=== PATIENT | female | born 1985 | race Hispanic/Latino ===

== ENCOUNTER 2019-10-07 | Emergency (ER) | payer SELFPAY ==
[~2019-10-07] MED LIST: BENADRYL 50MG C50 MG PO; MEDDOSEPAK PO; PEPCID20 MG PO; PHENERGAN25 MG/TAB PO
[2019-10-07 14:07] LABS: HEMATOCRIT 37.6 % (37.0-47.0); HEMOGLOBIN 12.2 g/dl (12.0-16.0); IMMATURE GRANULOCYTES 0.4 % (0.0-5.0); MEAN CELL VOLUME 87.2 fL CALC (80.0-100.0); MEAN CORPUSCULAR HGB 28.3 pG CALC (26.0-32.0); MEAN CORPUSCULAR HGB CONC 32.4 g/dL CAL (32.0-36.0); NEUT# 12.78 thou/uL (2.00-7.15); RED BLOOD COUNT 4.31 mill/uL (4.20-5.60); RED CELL DISTRI WIDTH 13.4 % (11.5-15.5)
[2019-10-07 14:09] LABS: URINE BILIRUBIN - DIPSTICK NEGATIVE (NEGATIVE); URINE BLOOD DIPSTICK TRACE-INTACT (NEGATIVE); URINE COLOR YELLOW; URINE GLUCOSE - DIPSTICK 250 mg/dL (NEGATIVE); URINE KETONE TRACE mg/dL (NEGATIVE); URINE LEUK ESTERASE NEGATIVE (NEGATIVE); URINE NITRITE - DIPSTICK NEGATIVE (Negative); URINE PROTEIN - DIPSTICK NEGATIVE (NEG-TRACE); URINE SPECIFIC GRAVITY >=1.030; URINE UROBILINOGEN - DIPSTICK 0.2 E.U./dL (0.2)
[2019-10-07 14:25] LABS: ALBUMIN 4.5 g/dL (3.2-5.0); ALKALINE PHOSPHATASE 68 u/l (38-126); ANION GAP 16 (6-22 (CALC)); BILIRUBIN, TOTAL 0.6 mg/dL (0.0-1.4); BUN 13 mg/dL (7-17); BUN/CREATININE RATIO 28 (12-20 (CALC)); CARBON DIOXIDE 21 mmol/l (22-30); CHLORIDE 104 mmol/l (95-108); CREATININE 0.5 mg/dL (0.5-1.0); GFR > 60 ML/MIN (>=60 (CALC)); GFR FOR AFR.AMER. > 60 ML/MIN (>=60 (CALC)); POTASSIUM 4.3 mmol/l (3.5-5.1); SGOT/AST 24 u/l (14-36); SODIUM 137 mmol/l (137-146); TOTAL PROTEIN 7.9 g/dL (6.3-8.2)
== END 2019-10-07 15:15 | disposition home or self-care (01) | DRG 93 ==
PROVIDERS: Family Medicine
DX: R20.2 Paresthesia of skin (principal); R00.1 Bradycardia, unspecified

== ENCOUNTER 2019-10-27 | Emergency (ER) | payer OTHER ==
[2019-10-27] MEDS ORDERED: IBUPROFEN600 MG PO (12:58)
== END 2019-10-27 13:25 | disposition home or self-care (01) | DRG 552 ==
DX: S16.1XXA Strain of muscle, fascia and tendon at neck level, initial encounter (principal); S90.512A Abrasion, left ankle, initial encounter; S60.221A Contusion of right hand, initial encounter; V43.52XA Car driver injured in collision with other type car in traffic accident, initial encounter

== ENCOUNTER 2019-10-29 | Emergency (ER) | payer SELFPAY ==
[~2019-10-29] MED LIST changes: +IBUPROFEN600 MG PO
[2019-10-29 23:26] LABS: HEMATOCRIT 37.6 % (37.0-47.0); HEMOGLOBIN 12.3 g/dl (12.0-16.0); IMMATURE GRANULOCYTES 0.4 % (0.0-5.0); MEAN CELL VOLUME 86.2 fL CALC (80.0-100.0); MEAN CORPUSCULAR HGB 28.2 pG CALC (26.0-32.0); MEAN CORPUSCULAR HGB CONC 32.7 g/dL CAL (32.0-36.0); NEUT# 7.66 thou/uL (2.00-7.15); RED BLOOD COUNT 4.36 mill/uL (4.20-5.60); RED CELL DISTRI WIDTH 13.1 % (11.5-15.5)
[2019-10-29 23:30] LABS: URINE BILIRUBIN - DIPSTICK NEGATIVE (NEGATIVE); URINE BLOOD DIPSTICK LARGE (NEGATIVE); URINE COLOR YELLOW; URINE GLUCOSE - DIPSTICK NEGATIVE (NEGATIVE); URINE KETONE NEGATIVE (NEGATIVE); URINE NITRITE - DIPSTICK NEGATIVE (Negative); URINE PROTEIN - DIPSTICK TRACE mg/dL (NEG-TRACE)
[2019-10-29 23:37] LABS: URINE LEUK ESTERASE NEGATIVE (NEGATIVE)
[2019-10-29 23:38] LABS: URINE RBC >100 RBC/hpf (0-5)
[2019-10-29 23:39] LABS: URINE BACTERIA MODERATE hpf; URINE EPITHELIAL CELLS MODERATE EPI/hpf (0-FEW)
[2019-10-29 23:55] LABS: ALBUMIN 4.4 g/dL (3.2-5.0); ALKALINE PHOSPHATASE 74 u/l (38-126); ANION GAP 13 (6-22 (CALC)); BILIRUBIN, TOTAL 0.6 mg/dL (0.0-1.4); BUN 11 mg/dL (7-17); BUN/CREATININE RATIO 16 (12-20 (CALC)); CARBON DIOXIDE 25 mmol/l (22-30); CHLORIDE 103 mmol/l (95-108); CREATININE 0.7 mg/dL (0.5-1.0); GFR > 60 ML/MIN (>=60 (CALC)); GFR FOR AFR.AMER. > 60 ML/MIN (>=60 (CALC)); LIPASE 40 u/l (23-300); POTASSIUM 3.5 mmol/l (3.5-5.1); SGOT/AST 17 u/l (14-36); SODIUM 138 mmol/l (137-146)
[2019-10-30] MEDS ORDERED: PERCOCET 5/325M1 TAB PO (02:23)
== END 2019-10-30 02:36 | disposition home or self-care (01) | DRG 392 ==
PROVIDERS: Emergency Medicine
DX: R10.30 Lower abdominal pain, unspecified (principal)
CPT/HCPCS: Q9967

== ENCOUNTER 2022-10-29 13:13 | Emergency (ER) | payer SELFPAY ==
[~2022-10-29] VITALS: Ht 154.9 cm; Wt 68.0 kg
[~2022-10-29 13:13] MED LIST changes: +PERCOCET 5/325M1 TAB PO
[2022-10-29 14:15] LABS: URINE BLOOD DIPSTICK SMALL (NEGATIVE); URINE COLOR YELLOW; URINE GLUCOSE - DIPSTICK NEGATIVE (NEGATIVE); URINE KETONE NEGATIVE (NEGATIVE); URINE LEUK ESTERASE NEGATIVE (NEGATIVE); URINE PH 6.5 (4.5-8.0); URINE PROTEIN - DIPSTICK TRACE mg/dL (NEG-TRACE); URINE UROBILINOGEN - DIPSTICK >=8.0 E.U./dL (0.2)
[2022-10-29 14:19] LABS: BASO% 0.2 % (0-3); EOS% 0.9 % (0-8); IMMATURE GRANULOCYTES 0.3 % (0.0-5.0); LYMPH% 7.7 % (15-41); MEAN CORPUSCULAR HGB 28.4 pG CALC (26.0-32.0); MEAN CORPUSCULAR HGB CONC 29.9 g/dL CAL (32.0-36.0); NEUT# 12.28 thou/uL (2.00-7.15); NEUT% 85.9 % (42-76); RED BLOOD COUNT 2.57 mill/uL (4.20-5.60); RED CELL DISTRI WIDTH 14.6 % (11.5-15.5)
[2022-10-29 14:22] LABS: URINE BILIRUBIN - DIPSTICK SEE COMMNET (NEGATIVE); URINE NITRITE - DIPSTICK NEGATIVE (Negative)
[2022-10-29 14:25] LABS: URINE BACTERIA FEW hpf; URINE RBC 0-2 RBC/hpf (0-5); URINE WBC 0-2 WBC/hpf (0-5)
[2022-10-29 14:27] LABS: ALBUMIN 3.7 g/dL (3.2-5.0); ANION GAP 13 (6-22 (CALC)); BILIRUBIN, TOTAL 0.7 mg/dL (0.02-1.3); BUN 8 mg/dL (7-17); BUN/CREATININE RATIO 16 (12-20 (CALC)); CARBON DIOXIDE 25 mmol/l (22-30); CHLORIDE 98 mmol/l (95-108); CREATININE 0.5 mg/dL (0.5-1.0); GFR FOR AFR.AMER. > 60 ML/MIN (>=60 (CALC)); GFR OTHER RACES > 60 ML/MIN (>=60 (CALC)); LIPASE 23 u/l (23-300); POTASSIUM 4.2 mmol/l (3.5-5.1); SODIUM 133 mmol/l (137-146); TOTAL PROTEIN 6.5 g/dL (6.3-8.2)
[2022-10-29 14:33] LABS: HEMATOCRIT 24.4 % (37.0-47.0); HEMOGLOBIN 7.3 g/dl (12.0-16.0); MEAN CELL VOLUME 94.9 fL CALC (80.0-100.0)
[2022-10-29 14:37] VITALS: BP 124/76
[2022-10-29 14:37] LABS: ALKALINE PHOSPHATASE 161 u/l (38-126); SGOT/AST 65 u/l (14-36)
[2022-10-29] MEDS ORDERED: OMNICEF300 M1 PO (18:18)
[2022-10-29] MEDS ORDERED: DOXYCYCLINE100 MG PO (18:18)
[2022-10-29 19:53] VITALS: BP 121/76
[2022-10-29 20:15] VITALS: BP 121/76
== END 2022-10-29 20:20 | disposition home or self-care (01) | DRG 863 ==
LOC: ED 13:13
PROVIDERS: Family Medicine
DX: T81.43XA Infection following a procedure, organ and space surgical site, initial encounter (principal); Y83.8 Other surgical procedures as the cause of abnormal reaction of the patient, or of later complication, without mention of misadventure at the time of the procedure; Z98.890 Other specified postprocedural states; Z20.822 Contact with and (suspected) exposure to COVID-19
CPT/HCPCS: Q9967